=== PATIENT | female | born 1970 | race African-American/Black ===

== ENCOUNTER 2018-01-30 16:42 | Emergency (ER) | payer BC ==
[2018-01-30 16:56] VITALS: TEMP 97.7; BMI 40.1
[2018-01-30] MEDS ORDERED: SODIUM CHLORIDE 1,000 ML IV STA (17:21)
--- NOTE | 2018-01-30 17:51 | PDOC ---
History of Present Illness - General Chief Complaint: Blood Pressure Problem Stated Complaint: LOW BP Time Seen by Provider: 01/30/18 16:45 - History of Present Illness Initial Comments: 01/30/18 17:43 "The patient is a 47 year old female with significant PMH of GERD who presents to the emergency department complaining of intermittent episodes of lightheadedness and dizziness that started 2 weeks ago. She states that the episodes last a few minutes and resolve spontaneously. Pt denies any CP/SOB but endorses occasional palpitations. Denies F/C. Denies N/V/D/abdominal pain. Of note, the patient admits to losing 9lbs over the last week. She has been on a ketogenic diet since last week, limiting herself to less than 1200 calories a day. The patient had an episode of lightheadedness at her pulm appointment today and was found to be tachycardic to 110 with BP 100/80 and was advised to go to the ER. The patient denies abdominal pain, hematuria, and hematochezia/melena. Allergies: Percocet, oxycodone, and codeine. Medications: (nurse chart) Social History: Patient denies smoking and alcohol consumption. Surgical History: Cholecystectomy (2014), DNC (2005) Past History - Past Medical History Allergies/Adverse Reactions: Allergies Allergy/AdvReac Type Severity Reaction Status Date / Time codeine Allergy Intermediate Difficulty Verified 01/30/18 16:43 Breathing oxycodone HCl [From Percocet] Allergy Difficulty Verified 01/30/18 16:43 Breathing Home Medications: Ambulatory Orders Clonazepam [Klonopin] 2 mg PO HS 08/07/15 Duloxetine HCl [Cymbalta -] 120 mg PO HS 08/07/15 Pantoprazole Sodium [Protonix -] 40 mg PO DAILY 08/07/15 Albuterol Sulfate [Proair Hfa] 1 spray IH ASDIR PRN 01/30/18 Bupropion HCl [Wellbutrin -] 150 mg PO DAILY 01/30/18 Gabapentin 300 mg PO AM 01/30/18 Gabapentin 600 mg PO HS 01/30/18 Montelukast Sodium [Singulair] 10 mg PO DAILY 01/30/18 Pravastatin Sodium 20 mg PO HS 01/30/18 Prednisone [Deltasone] 20 mg PO ASDIR 01/30/18 Propranolol HCl 40 mg PO DAILY 01/30/18 Tiotropium [place] [Spiriva] 1 inh IH BID 01/30/18 Anemia: No Asthma: Yes (REACTIVE AIRWAY DSE) Cancer: No Cardiac Disorders: No CVA: No COPD: No CHF: No Dementia: No Diabetes: Yes (PT STATES SHE WAS TOLD HGA1C IS SLIGHTLY ELEVATED) GI Disorders: Yes (gerd) Disorders: No HTN: No Hypercholesterolemia: No Liver Disease: No Psychiatric Problems: Yes (ANXIETY, DEPRESSION) Seizures: No Thyroid Disease: No - Surgical History Abdominal Surgery: No Appendectomy: No Cardiac Surgery: No Cholecystectomy: Yes Lung Surgery: No Neurologic Surgery: No Orthopedic Surgery: No - Suicide/Smoking/Psychosocial Hx Smoking History: Never smoked Have you smoked in the past 12 months: No Hx Alcohol Use: No Drug/Substance Use Hx: No Substance Use Type: None Hx Substance Use Treatment: No Review of Systems - Review of Systems Comments:: 01/30/18 17:51 "GENERAL/CONSTITUTIONAL: No fever or chills. HEAD, EYES, EARS, NOSE AND THROAT: No change in vision. No ear pain or discharge. No sore throat. CARDIOVASCULAR: + lightheadedness, + palpitations, No chest pain or shortness of breath. RESPIRATORY: No cough, wheezing, or hemoptysis. GASTROINTESTINAL: No nausea, vomiting, diarrhea or constipation. GENITOURINARY: No dysuria, frequency, or change in urination. MUSCULOSKELETAL: No joint or muscle swelling or pain. No neck or back pain. SKIN: No rash NEUROLOGIC: No headache, vertigo, loss of consciousness, or change in strength/ sensation. ENDOCRINE: No increased thirst. No abnormal weight change. HEMATOLOGIC/LYMPHATIC: No anemia, easy bleeding, or history of blood clots. ALLERGIC/IMMUNOLOGIC: No hives or skin allergy. " *Physical Exam - Vital Signs Last Vital Signs Temp Pulse Resp BP Pulse Ox 97.7 F 110 H 20 113/67 98 01/30/18 16:42 01/30/18 16:42 01/30/18 16:42 01/30/18 16:42 01/30/18 16:42 - Physical Exam Comments: 01/30/18 17:51 "GENERAL: Awake, alert, and fully oriented, in no acute distress HEAD: No signs of trauma EYES: PERRLA, EOMI, sclera anicteric, conjunctiva clear ENT: Auricles normal inspection, hearing grossly normal, nares patent, oropharynx clear without exudates. Moist mucosa NECK: Nontender, no stepoffs, Normal ROM, supple, no lymphadenopathy, JVD, or masses LUNGS: Breath sounds equal, clear to auscultation bilaterally. No wheezes, and no crackles HEART: Regular rate and rhythm, normal S1 and S2, no murmurs, rubs or gallops ABDOMEN: Soft, nontender, normoactive bowel sounds. No guarding, no rebound. No masses EXTREMITIES: Normal range of motion, no edema. No clubbing or cyanosis. No cords, erythema, or tenderness NEUROLOGICAL: Cranial nerves II through XII intact. 5/5 strength and sensation in all extremities, Normal speech, normal gait, normal cerebellar function SKIN: Warm, Dry, normal turgor, no rashes or lesions noted. " Heart Score/ECG Review - History History: Slightly suspicious (NSR, no RENETTA/STDs, no TWIs, axis wnl, intervals wnl , rate 84) - Electrocardiogram EKG: Normal - Age Age: 45-65 - Risk Factors Risk Factors Heart Score: Yes Hx Obesity Based on the list above the patient has:: 1-2 risk factors - Troponin Troponin: </= normal limit (NSR, no RENETTA/STDs, no TWIs, axis wnl, intervals wnl, rate 84) - Score Heart Score - Total: 2 ED Treatment Course - LABORATORY CBC & Chemistry Diagram: 01/30/18 17:40 01/30/18 17:40 - RADIOLOGY Radiology Studies Ordered: Category Date Time Status CHEST PA & LAT [RAD] Stat Radiology 01/30/18 17:20 Ordered Medical Decision Making - Medical Decision Making 01/30/18 17:40 47 F with intermittent episodes of head heaviness and pre-syncope. Sent from clinic for low BP but normotensive in ED today. Pt without any focal complaints at this time. Pt with no infectious symptoms. NO chest pain/SOB to suggest ACS. Possible paroxysmal tachyarrhythmia, though EKG is completely normal. - Labs, trop - CXR, UA - IVF - Reassess 01/30/18 18:49 Labs wnl CXR clear Pt reassessed - now feels much better after IV fluids. Vitals now normal. Pt is well appearing, with normal vitals. Clinically stable for DC at this time. I discussed the physical exam findings, ancillary test results and final diagnoses with the patient. I answered all of the patient's questions. The patient was satisfied with the care received and felt comfortable with the discharge plan and treatment plan. The patient agrees to follow up with the primary care physician within 24-72 hours. *DC/Admit/Observation/Transfer Diagnosis at time of Disposition: Pre-syncope - Discharge Dispostion Disposition: HOME Condition at time of disposition: Stable - Referrals Referrals: Yuri Antonio MD [Primary Care Provider] - Aaron Allen MD [Staff Physician] - - Patient Instructions Printed Discharge Instructions: DI for Dizziness-Nonvertigo Additional Instructions: Please follow up with a ecological economist to have your palpitations and lightheadedness further evaluated. You may need a Holter monitor to evaluate your heart for abnormal rhythms. Ask your primary doctor for a referral or call the number provided to make an appointment. If you experience worsening palpitations, chest pain, shortness of breath, fainting episodes, or any other concerning symptoms, return to the ER immediately. Otherwise, follow up with your primary doctor within 1 week. - Post Discharge Activity - Attestations Physician Attestion: 01/30/18 18:56 I, Dr. Tom Boone MD, attest that this document has been prepared under my direction and personally reviewed by me in its entirety. I further attest, that it accurately reflects all work, treatment, procedures and medical decision -making performed by me.
[2018-01-30 17:57] LABS: BASO % 4.7 % (0-2.0); EOS % 1.4 % (0-4.5); HEMATOCRIT 42.7 % (32.4-45.2); HEMOGLOBIN 13.7 GM/dl (10.7-15.3); LYMPH % 39.4 % (8-40); MEAN CELL VOLUME 87.3 fl (80-96); MEAN PLT VOLUME 7.1 fl (7.5-11.1); MONO % 7.2 % (3.8-10.2); NEUT % 47.3 % (42.8-82.8); PLATELET COUNT 517 K/MM3 (134-434); RDW 13.8 % (11.6-15.6); WHITE BLOOD COUNT 8.5 K/mm3 (4.0-10.8)
[2018-01-30 18:12] LABS: ALBUMIN 3.4 g/dl (3.5-5.0); ALK PHOS 66 U/L (32-92); ANION GAP 10 (8-16); BILIRUBIN,TOTAL 0.5 mg/dl (0.2-1.0); BLOOD UREA NITROGEN 12 mg/dl (7-18); CALCIUM 9.4 mg/dl (8.4-10.2); CHLORIDE 97 mmol/L (98-107); CO2 26 mmol/L (22-28); GLUCOSE,RANDOM 105 mg/dl (74-106); POTASSIUM 3.9 mmol/L (3.5-5.1); SGOT/AST 20 U/L (10-42); SGPT/ALT 27 U/L (10-40); SODIUM 133 mmol/L (136-145); TOT PROT 7.9 g/dl (6.4-8.3)
[2018-01-30 18:17] LABS: URINE APPEARANCE Clear; URINE BILIRUBIN 1+ (NEGATIVE); URINE BLOOD Negative (NEGATIVE); URINE GLUCOSE (UA) Negative (NEGATIVE); URINE KETONE 3+ (NEGATIVE); URINE LEUK ESTERASE Negative (NEGATIVE); URINE NITRITE Negative (NEGATIVE); URINE PROTEIN Trace (NEGATIVE); URINE UROBILINOGEN 0.2 (0.2-1.0)
[2018-01-30 18:18] LABS: URINE COLOR YELLOW
[2018-01-30 18:20] LABS: HCG,QUALITATIVE URINE NEGATIVE
[2018-01-30 18:26] LABS: CREATININE < 0.8 mg/dl (0.6-1.3)
[2018-01-30] MEDS ORDERED: ACETAMINOPHEN 325 MG TABLET (FP) PO ONE (18:51)
[2018-01-30] MEDS ORDERED: ACETAMINOPHEN 325 MG TABLET (FP) ONE (18:56)
[2018-01-30 19:07] VITALS: BP 126/70; PULSE 84
--- NOTE | 2018-01-31 18:14 | EKG ---
Test Reason : Blood Pressure : / mmHG Vent. Rate : 092 BPM Atrial Rate : 092 BPM P-R Int : 148 ms QRS Dur : 072 ms QT Int : 364 ms P-R-T Axes : 065 011 040 degrees QTc Int : 450 ms NORMAL SINUS RHYTHM MINIMAL VOLTAGE CRITERIA FOR LVH, MAY BE NORMAL VARIANT NONSPECIFIC T WAVE ABNORMALITY ABNORMAL ECG NO PREVIOUS ECGS AVAILABLE Confirmed by MD JULI, MAYITO ([id number]) on 01/31/2018 6:13:24 PM Referred By: DR ROSARIO Confirmed By:MAYITO BUSTOS MD
== END 2018-01-30 19:40 | disposition home or self-care (01) ==
LOC: FER 16:42
PROC: 3E0337Z Introduction of Electrolytic and Water Balance Substance into Peripheral Vein, Percutaneous Approach (ICD-10-PCS; principal; 2018-01-30)
DX: R55 Syncope and collapse (principal); K21.9 Gastro-esophageal reflux disease without esophagitis; E11.9 Type 2 diabetes mellitus without complications; F41.8 Other specified anxiety disorders; J45.909 Unspecified asthma, uncomplicated; Z88.5 Allergy status to narcotic agent; Z88.6 Allergy status to analgesic agent; Z79.84 Long term (current) use of oral hypoglycemic drugs
CPT/HCPCS: 36415; 71046-TC-FY; 80053; 81003; 82550; 84443; 84484; 84703; 85025; 93005; 99284-25; J7030

== ENCOUNTER 2018-02-23 16:17 | Emergency (ER) | payer BC ==
--- NOTE | 2018-02-23 16:23 | PDOC ---
Rapid Medical Evaluation Time Seen by Provider: 02/23/18 16:18 Medical Evaluation: Allergies Allergy/AdvReac Type Severity Reaction Status Date / Time codeine Allergy Intermediate Difficulty Verified 01/30/18 16:43 Breathing oxycodone HCl [From Percocet] Allergy Difficulty Verified 01/30/18 16:43 Breathing 02/23/18 16:18 I have performed a brief in-person evaluation of this patient. The patient presents with a chief complaint of: pain to R side since Friday, feeling heart palpitations x 3 month, at pulm visit, had low BP, "Dr. Holland wanted me to come in", denies vomiting Pertinent physical exam findings: lungs ctab I have ordered the following: labs, ekg The patient will proceed to the ED for further evaluation. Discharge Disposition - Diagnosis Right sided abdominal pain - Referrals Referrals: Yuri Antonio MD [Primary Care Provider] - - Patient Instructions - Post Discharge Activity
[2018-02-23 16:30] VITALS: BP 128/88; PULSE 86; TEMP 98.4; BMI 41.2
[2018-02-23 17:04] LABS: BASO % 0.7 % (0-2.0); EOS % 4.4 % (0-4.5); HEMATOCRIT 36.5 % (32.4-45.2); HEMOGLOBIN 12.3 GM/dL (10.7-15.3); LYMPH % 39.3 % (8-40); MCH 29.3 pg (25.7-33.7); MCHC 33.8 g/dl (32.0-36.0); MEAN CELL VOLUME 86.9 fl (80-96); MONO % 11.2 % (3.8-10.2); NEUT % 44.4 % (42.8-82.8); PLATELET COUNT 441 K/MM3 (134-434); RDW 14.3 % (11.6-15.6); WHITE BLOOD COUNT 5.1 K/mm3 (4.0-10.0)
[2018-02-23 17:07] LABS: URINE APPEARANCE CLOUDY; URINE BILIRUBIN NEGATIVE (<2.0 mg/dL); URINE BLOOD 3+ (NEGATIVE); URINE COLOR AMBER; URINE GLUCOSE (UA) NEGATIVE (NEGATIVE); URINE KETONE NEGATIVE (NEGATIVE); URINE LEUK ESTERASE NEGATIVE (NEGATIVE); URINE NITRITE NEGATIVE (NEGATIVE); URINE UROBILINOGEN NEGATIVE mg/dL (0.2-1.0)
--- NOTE | 2018-02-23 17:12 | PDOC ---
History of Present Illness - General Chief Complaint: Pain Stated Complaint: RIGHT SIDE PAIN Time Seen by Provider: 02/23/18 16:18 - History of Present Illness Initial Comments: 02/23/18 17:40 The patient is a 47 year old female with a history of Asthma, DM, GERD s/p cholecystectomy 2014 who presents for evaluation of abdominal pain. The patient reports a 6 day history of RUQ intermittent sharp abdominal pain. The patient called her primary care provider Dr. Antonio who referred the patient to the ER for further evaluation. The patient otherwise denies fevers, chills, SOB , chest pain, nausea, vomiting, or changes with urination or bowel movements. Past History - Past Medical History Allergies/Adverse Reactions: Allergies Allergy/AdvReac Type Severity Reaction Status Date / Time codeine Allergy Intermediate Difficulty Verified 02/23/18 16:19 Breathing oxycodone HCl [From Percocet] Allergy Difficulty Verified 02/23/18 16:19 Breathing Home Medications: Ambulatory Orders Clonazepam [Klonopin] 2 mg PO HS 08/07/15 Duloxetine HCl [Cymbalta -] 120 mg PO HS 08/07/15 Pantoprazole Sodium [Protonix -] 40 mg PO DAILY 08/07/15 Albuterol Sulfate [Proair Hfa] 1 spray IH ASDIR PRN 01/30/18 Bupropion HCl [Wellbutrin -] 150 mg PO DAILY 01/30/18 Gabapentin 300 mg PO AM 01/30/18 Gabapentin 600 mg PO HS 01/30/18 Montelukast Sodium [Singulair] 10 mg PO DAILY 01/30/18 Pravastatin Sodium 20 mg PO HS 01/30/18 Prednisone [Deltasone] 20 mg PO ASDIR 01/30/18 Propranolol HCl 40 mg PO DAILY 01/30/18 Tiotropium [place] [Spiriva] 1 inh IH BID 01/30/18 Anemia: No Asthma: Yes (REACTIVE AIRWAY DSE) Cancer: No Cardiac Disorders: No CVA: No COPD: No CHF: No DVT: No Dementia: No Diabetes: Yes (PT STATES SHE WAS TOLD HGA1C IS SLIGHTLY ELEVATED) GI Disorders: Yes (gerd) Disorders: No HTN: No Hypercholesterolemia: No Liver Disease: No Psychiatric Problems: Yes (ANXIETY, DEPRESSION) Seizures: No Thyroid Disease: No Other medical history: fibromyalgia, tremors - Surgical History Abdominal Surgery: No Appendectomy: No Cardiac Surgery: No Cholecystectomy: Yes Lung Surgery: No Neurologic Surgery: No Orthopedic Surgery: No - Suicide/Smoking/Psychosocial Hx Smoking History: Never smoked Have you smoked in the past 12 months: No Information on smoking cessation initiated: No Hx Alcohol Use: No Drug/Substance Use Hx: No Substance Use Type: None Hx Substance Use Treatment: No Review of Systems - Review of Systems Comments:: 02/23/18 17:45 Constitutional: No fevers, chills, fatigue, malaise HEENT: No Rhinorrhea, nasal congestion, visual changes Cardiovascular: No chest pain, syncope, palpitations, lightheadedness Respiratory: No Cough, SOB, Hemoptysis, Gastrointestinal: Abdominal pain. No Nausea, Vomiting, Constipation, Diarrhea, Melena Genitourinary: No Dysuria, Frequency, Urgency, Hesitancy, Hematuria, Flank pain Musculoskeletal: No Myalgia, arthralgia Skin: No rashes, itching, bruising, pallor Neurologic: No Headache, Dizziness, Numbness, Weakness, or Tingling Psychiatric: No Hallucinations. No SI or HI *Physical Exam - Vital Signs Last Vital Signs Temp Pulse Resp BP Pulse Ox 98.4 F 86 18 128/88 100 02/23/18 16:20 02/23/18 16:20 02/23/18 16:20 02/23/18 16:20 02/23/18 16:20 - Physical Exam Comments: 02/23/18 17:47 General Appearance: Nourished. No Apparent Distress HEENT: EOMI, SUBHASH. No Pharyngeal Erythema, Tonsillar Exudate, Tonsillar Erythema Neck: No Cervical Lymphadenopathy Respiratory/Chest: Lungs Clear, Normal Breath Sounds. No Crackles, Rales, Rhonchi, Wheezing Cardiovascular: Regular Rhythm, Regular Rate. No Murmur, Gallops, Rubs Gastrointestinal/Abdominal: Normal Bowel Sounds, Soft. Tenderness to palpation in the RUQ and Epigastric regions. No Guarding, Rebound, Musculoskeletal: No CVA Tenderness Extremity: Normal Capillary Refill Integumentary: Normal Color, Dry, Warm Neurologic: Fully Oriented, Alert, Normal Mood/Affect, Normal Response, ED Treatment Course - LABORATORY CBC & Chemistry Diagram: 02/23/18 16:50 02/23/18 16:50 - ADDITIONAL ORDERS Additional order review: 02/23/18 16:50 RBC 4.20 MCV 86.9 MCHC 33.8 RDW 14.3 MPV 7.0 L Neutrophils % 44.4 D Lymphocytes % 39.3 D Monocytes % 11.2 H Eosinophils % 4.4 Basophils % 0.7 Medical Decision Making - Medical Decision Making 02/23/18 17:48 The patient is a 47 year old female with a history of Asthma, DM, GERD s/p cholecystectomy 2014 who presents for evaluation of abdominal pain. Differential includes but is not limited to: Cholydocholethiasis, Pancreatitis, Gastritis, Infectious, Metabolic derangement. Given the patient's history and physical exam, we will obtain a cbc, cmp, lipase, ua, and abdominal ct to evaluate for possible etiologies. We will continue to monitor and reassess in the meantime. 02/23/18 18:35 CBC, cmp, lipase, ua are unremarkable. Patient signed out to the night team pending CT abdomen/pelvis. *DC/Admit/Observation/Transfer Diagnosis at time of Disposition: Right sided abdominal pain - Discharge Dispostion Disposition: HOME Condition at time of disposition: Good - Referrals Referrals: Yuri Antonio MD [Primary Care Provider] - 1 week - Patient Instructions Printed Discharge Instructions: DI for Abdominal Pain-Adult Additional Instructions: You were seen her for abdominal pain. We did several tests including a CT scan of the abdomen, which did not show anything that would require immediate surgery. It however shows a fibroid. Please follow up with your primary care doctor as soon as possible Also follow up with your GI (pickling solution maker) as you may need endoscopy or colonoscopy You may continue to take medications to control the pain as needed If you think your symptoms are getting worse, or if you have chest pain, shortness of breath please go to the nearest emergency room - Post Discharge Activity
[2018-02-23 17:21] LABS: URINE PROTEIN 2+ (NEGATIVE)
[2018-02-23] MEDS ORDERED: SODIUM CHLORIDE 1,000 ML IV STA (17:27)
[2018-02-23 17:29] LABS: INR 1.34 (0.82-1.09); PROTHROMBIN TIME (PATIENT) 15.1 SEC (9.7-13.0)
[2018-02-23 17:30] LABS: EPI CELLS RARE /HPF (FEW); URINE MUCUS MANY
[2018-02-23 17:32] LABS: ALBUMIN 3.2 g/dl (3.4-5.0); ANION GAP 5 (8-16); BLOOD UREA NITROGEN 7 mg/dL (7-18); CALCIUM 8.8 mg/dL (8.5-10.1); CHLORIDE 105 mmol/L (98-107); CO2 28 mmol/L (21-32); GLUCOSE,RANDOM 90 mg/dL (74-106); POTASSIUM 3.9 mmol/L (3.5-5.1); SGOT/AST 15 U/L (15-37); SGPT/ALT 27 U/L (12-78); SODIUM 138 mmol/L (136-145)
[2018-02-23 17:34] LABS: ALK PHOS 87 U/L (45-117); BILIRUBIN,TOTAL 0.4 mg/dL (0.2-1.0); CREATININE 0.6 mg/dL (0.55-1.02); TOT PROT 7.7 g/dl (6.4-8.2)
[2018-02-23] MEDS ORDERED: ONDANSETRON 4 MG/2 ML VIAL IVPUSH ONE (18:54)
[2018-02-23] MEDS ORDERED: FAMOTIDINE 20 MG/50 ML IVPB 20 MG/50 ML MG IVPB ONE ×2 (18:54→19:03)
[2018-02-23] MEDS ORDERED: MAG HYDROX/AL HYDROX/SIMETH 30 ML UNIT-DOSE CUP PO ONE (18:54)
[2018-02-23] MEDS ORDERED: ONDANSETRON 4 MG/2 ML VIAL ONE (19:03)
[2018-02-23] MEDS ORDERED: MAG HYDROX/AL HYDROX/SIMETH 30 ML UNIT-DOSE CUP ONE (19:03)
--- NOTE | 2018-02-23 19:59 | PDOC ---
*Physical Exam - Vital Signs Last Vital Signs Temp Pulse Resp BP Pulse Ox 98.4 F 86 18 128/88 99 02/23/18 16:20 02/23/18 16:20 02/23/18 16:20 02/23/18 16:20 02/23/18 18:22 ED Treatment Course - LABORATORY CBC & Chemistry Diagram: 02/23/18 16:50 02/23/18 16:50 - ADDITIONAL ORDERS Additional order review: Laboratory Results 02/23/18 02/23/18 02/23/18 16:51 16:50 16:50 PT with INR INR Sodium 138 Potassium 3.9 Chloride 105 Carbon Dioxide 28 Anion Gap 5 L BUN 7 Creatinine 0.6 Creat Clearance w eGFR > 60 Random Glucose 90 Calcium 8.8 Total Bilirubin 0.4 AST 15 ALT 27 Alkaline Phosphatase 87 Total Protein 7.7 Albumin 3.2 L Lipase 103 Urine Color [place] Urine Appearance Cloudy Urine pH 6.0 Ur Specific [place] 1.020 Urine Protein 2+ H Urine Glucose (UA) Negative Urine Ketones Negative Urine Blood 3+ H Urine Nitrite Negative Urine Bilirubin Negative Urine Urobilinogen Negative Ur Leukocyte Esterase Negative Urine WBC (Auto) 153 Urine RBC (Auto) 2810 Ur Epithelial Cells Rare Urine Mucus Many 02/23/18 16:50 PT with INR 15.10 H INR 1.34 H Sodium Potassium Chloride Carbon Dioxide Anion Gap BUN Creatinine Creat Clearance w eGFR Random Glucose Calcium Total Bilirubin AST ALT Alkaline Phosphatase Total Protein Albumin Lipase Urine Color Urine Appearance Urine pH Ur Specific [place] Urine Protein Urine Glucose (UA) Urine Ketones Urine Blood Urine Nitrite Urine Bilirubin Urine Urobilinogen Ur Leukocyte Esterase Urine WBC (Auto) Urine RBC (Auto) Ur Epithelial Cells Urine Mucus 02/23/18 16:50 RBC 4.20 MCV 86.9 MCHC 33.8 RDW 14.3 MPV 7.0 L Neutrophils % 44.4 D Lymphocytes % 39.3 D Monocytes % 11.2 H Eosinophils % 4.4 Basophils % 0.7 - Medications Given in the ED: ED Medications Discontinued Medications Generic Name Dose Route Start Last Admin Trade Name Freq PRN Reason Stop Dose Admin Al Hydroxide/Mg Hydroxide 30 ml 02/23/18 18:54 02/23/18 19:08 Mylanta Oral Suspension - PO 02/23/18 18:55 30 ml ONCE ONE Administration Sodium Chloride 1,000 mls @ 1,000 mls/hr 02/23/18 17:27 02/23/18 17:52 Normal Saline - IV 02/23/18 18:26 1,000 mls/hr ASDIR STA Administration Famotidine/Sodium Chloride 20 mg in 50 mls @ 100 mls/hr 02/23/18 18:54 19:09 Pepcid 20 Mg Premixed Ivpb - IVPB 02/23/18 19:23 100 mls/hr ONCE ONE Administration Ondansetron HCl 4 mg 02/23/18 18:54 02/23/18 19:09 Zofran Injection IVPUSH 02/23/18 18:55 4 mg ONCE ONE Administration Medical Decision Making - Medical Decision Making 02/23/18 19:59 Patient signed out to me by Dr Wynne. Pending CT scan 02/23/18 22:00 CT does not show acute pathology. Shows calcified uterus indicative of fibroid *DC/Admit/Observation/Transfer Diagnosis at time of Disposition: Right sided abdominal pain - Discharge Dispostion Disposition: HOME Admit: No - Referrals Referrals: Yuri Atnonio MD [Primary Care Provider] - 1 week - Patient Instructions Printed Discharge Instructions: DI for Abdominal Pain-Adult Additional Instructions: You were seen her for abdominal pain. We did several tests including a CT scan of the abdomen, which did not show anything that would require immediate surgery. It however shows a fibroid. Please follow up with your primary care doctor as soon as possible You may continue to take over the counter medications to control the pain If you think your symptoms are getting worse, or if you have chest pain, shortness of breath please go to the nearest emergency room - Post Discharge Activity - Attestations Physician Attestion: 02/23/18 22:05 Tatiana Britton MD
--- NOTE | 2018-02-23 20:34 | PDOC ---
Attending Attestation - Resident Resident Name: Luis Wynne - ED Attending Attestation I have performed the following: I have examined & evaluated the patient, The case was reviewed & discussed with the resident, I agree w/resident's findings & plan, Exceptions are as noted - HPI HPI: 02/23/18 20:30 47 yo female with intermittent RUQ pain since Weds Denies fever,chills,vomiting.diarrhea,cp or sob PSH GB - Physicial Exam PE: 02/23/18 22:09 47 yo female p/w RLQ and RUQ pain since WED -head ncat neck supple lungs cta b/l cvs [id number] lungs cta b/l no cva tenderness abd is protuberant with mild tenderness to deep palpation in rlq and ruq, no rebound and no guarding musculoskeletal no hernia appreciated ext no e/c/c neuro axox3,ambulatory skin warm and dry - Medical Decision Making 02/23/18 22:12 ct scan abd/pel with contrast NO ACUTE ABD PROCESS SEEN, there was a 6 cm calcified uterine fibroid plan pt will follow up with Dr Chapis Alicia to get GI referral
== END 2018-02-23 22:43 | disposition home or self-care (01) ==
LOC: JER 16:17
PROC: 3E0337Z Introduction of Electrolytic and Water Balance Substance into Peripheral Vein, Percutaneous Approach (ICD-10-PCS; principal; 2018-02-23)
PROC: 3E033GC Introduction of Other Therapeutic Substance into Peripheral Vein, Percutaneous Approach (ICD-10-PCS; 2018-02-23)
PROC: 3E033GC Introduction of Other Therapeutic Substance into Peripheral Vein, Percutaneous Approach (ICD-10-PCS; 2018-02-23)
DX: R10.10 Upper abdominal pain, unspecified (principal); J45.909 Unspecified asthma, uncomplicated; K21.9 Gastro-esophageal reflux disease without esophagitis; E11.9 Type 2 diabetes mellitus without complications; F41.9 Anxiety disorder, unspecified; F32.9 Major depressive disorder, single episode, unspecified; M79.7 Fibromyalgia; Z88.6 Allergy status to analgesic agent
CPT/HCPCS: 36415; 74177-TC; 80053; 81003; 81015; 83690; 85025; 85610; 87086; 99285-25; J7030

== ENCOUNTER 2018-09-22 18:08 | Emergency (ER) | payer BC ==
--- NOTE | 2018-09-22 18:23 | PDOC ---
Rapid Medical Evaluation Chief Complaint: Lightheaded Time Seen by Provider: 09/22/18 18:20 Medical Evaluation: Allergies Allergy/AdvReac Type Severity Reaction Status Date / Time codeine Allergy Intermediate Difficulty Verified 02/23/18 16:19 Breathing oxycodone HCl [From Percocet] Allergy Difficulty Verified 02/23/18 16:19 Breathing 09/22/18 18:21 I have performed a brief in person evaluation. The patient presents with a CC of : "dizziness" HPI: Pt complains of "dizziness" x 2-3 weeks multiple times throughout the day. Pt denies CV hx. PE: Skin: Clear Lungs: Clear Heart: Tachy, no rubs or gallops Abd: no pain upon palpation MS: Moves all extremities without difficulty Neuro: Alert Psych: Appropriate affect I have ordered the following: Cv protocol The patient will proceed to the ED for further evaluation. Discharge Disposition - Diagnosis Dizziness - Referrals Referrals: Yuri Antonio MD [Primary Care Provider] - - Patient Instructions - Post Discharge Activity
[2018-09-22 18:28] VITALS: BMI 39.9
[2018-09-22 19:27] LABS: BASO % 1.1 % (0-2.0); EOS % 0.9 % (0-4.5); HEMATOCRIT 38.1 % (32.4-45.2); LYMPH % 21.9 % (8-40); MCH 29.3 pg (25.7-33.7); MCHC 34.1 g/dl (32.0-36.0); MEAN CELL VOLUME 86.1 fl (80-96); MONO % 6.1 % (3.8-10.2); PLATELET COUNT 543 K/MM3 (134-434); RBC 4.43 M/mm3 (3.60-5.2); RDW 14.4 % (11.6-15.6); WHITE BLOOD COUNT 8.1 K/mm3 (4.0-10.0)
[2018-09-22 19:38] LABS: INR 1.15 (0.83-1.09); PROTHROMBIN TIME (PATIENT) 13.6 SEC (9.7-13.0)
--- NOTE | 2018-09-22 19:48 | PDOC ---
History of Present Illness - General Chief Complaint: Syncope/Near Syncope Stated Complaint: Irregular Heart Beat Time Seen by Provider: 09/22/18 18:20 History Source: Patient Exam Limitations: No Limitations - History of Present Illness Initial Comments: 09/22/18 21:49 Patient is a 47-year-old female with past medical history of asthma, non-insulin -dependent diabetes, who presents to the emergency department today for head pain. Patient states that over the past 2 weeks she has been feeling pain and heaviness in her head intermittently. She states that the episodes are brief and usually resolve on their own. She states she occasionally feels her heart race when this happens. Denies fevers, chills, lightheadedness, dizziness, nausea, vomiting, chest pain, edema. Patient also reports some shortness of breath and taking prednisone the past week for her reactive airway disease. Past History - Travel Traveled outside of the country in the last 30 days: No Close contact w/someone who was outside of country & ill: No - Past Medical History Allergies/Adverse Reactions: Allergies Allergy/AdvReac Type Severity Reaction Status Date / Time codeine Allergy Intermediate Difficulty Verified 09/22/18 18:24 Breathing oxycodone HCl [From Percocet] Allergy Difficulty Verified 09/22/18 18:24 Breathing Home Medications: Ambulatory Orders Duloxetine HCl [Cymbalta -] 120 mg PO HS 08/07/15 Pantoprazole Sodium [Protonix -] 40 mg PO DAILY 08/07/15 Albuterol Sulfate [Proair Hfa] 1 spray IH ASDIR PRN 01/30/18 Bupropion HCl [Wellbutrin -] 150 mg PO DAILY 01/30/18 Gabapentin 200 mg PO AM 01/30/18 Montelukast Sodium [Singulair] 10 mg PO DAILY 01/30/18 Pravastatin Sodium 20 mg PO HS 01/30/18 Prednisone [Deltasone] 20 mg PO BID 01/30/18 Tiotropium Vance [Spiriva] 1 inh IH BID 01/30/18 Metformin HCl [Glucophage] 500 mg PO BID 09/22/18 Anemia: No Asthma: Yes (REACTIVE AIRWAY DSE) Cancer: No Cardiac Disorders: No CVA: No COPD: No CHF: No DVT: No Dementia: No Diabetes: Yes (PT STATES SHE WAS TOLD HGA1C IS SLIGHTLY ELEVATED) GI Disorders: Yes (gerd) Disorders: No HTN: No Hypercholesterolemia: No Liver Disease: No Psychiatric Problems: Yes (ANXIETY, DEPRESSION) Seizures: No Thyroid Disease: No - Surgical History Abdominal Surgery: No Appendectomy: No Cardiac Surgery: No Cholecystectomy: Yes Lung Surgery: No Neurologic Surgery: No Orthopedic Surgery: No - Suicide/Smoking/Psychosocial Hx Smoking History: Never smoked Have you smoked in the past 12 months: No Information on smoking cessation initiated: No Hx Alcohol Use: No Drug/Substance Use Hx: No Substance Use Type: None Hx Substance Use Treatment: No Review of Systems - Review of Systems Able to Perform ROS?: Yes Comments:: 09/22/18 21:31 CONSTITUTIONAL: Absent: fever, chills, diaphoresis, generalized weakness, malaise, loss of appetite HEENT: Absent: rhinorrhea, nasal congestion, throat pain, throat swelling, difficulty swallowing, mouth swelling, ear pain, eye pain, visual Changes CARDIOVASCULAR: Absent: chest pain, loss of consciousness, palpitations, irregular heart rate, peripheral edema RESPIRATORY: Absent: cough, shortness of breath, dyspnea with exertion, orthopnea, wheezing, stridor, hemoptysis GASTROINTESTINAL: Absent: abdominal pain, abdominal distension, nausea, vomiting, diarrhea, constipation, melena, hematochezia GENITOURINARY: Absent: dysuria, frequency, urgency, hesitancy, hematuria, flank pain, genital pain MUSCULOSKELETAL: Absent: myalgia, arthralgia, joint swelling SKIN: Absent: rash, itching, pallor HEMATOLOGIC/IMMUNOLOGIC: Absent: easy bleeding, easy bruising, lymphadenopathy, frequent infections ENDOCRINE: Absent: unexplained weight gain, unexplained weight loss, heat intolerance, cold intolerance NEUROLOGIC: Present: head pain, lightheadedness Absent: focal weakness or paresthesias, dizziness, unsteady gait, seizure, mental status changes, bladder or bowel incontinence PSYCHIATRIC: Absent: anxiety, depression, suicidal or homicidal ideation, hallucinations. 09/23/18 06:59 Is the patient limited Setswana proficient: No *Physical Exam - Vital Signs Last Vital Signs Temp Pulse Resp BP Pulse Ox 98.1 F 112 H 22 H 154/98 98 09/22/18 18:24 09/22/18 18:24 09/22/18 18:24 09/22/18 18:24 09/22/18 18:24 - Physical Exam Comments: 09/22/18 21:31 GENERAL: Well developed, well nourished. Awake and alert. No acute distress. HEENT: Normocephalic, atraumatic. PERRLA, EOMI. No conjunctival pallor. Sclera are non- icteric. Moist mucous membranes. Oropharynx is clear. NECK: Supple. Full ROM. No JVD. Carotid pulses 2+ and symmetric, without bruits. No thyromegaly. No lymphadenopathy. CARDIOVASCULAR: Regular rate and rhythm. No murmurs, rubs, or gallops. Distal pulses are 2+ and symmetric. PULMONARY: No evidence of respiratory distress. Lungs clear to auscultation bilaterally. No wheezing, rales or rhonchi. ABDOMINAL: Soft. Non-tender. Non-distended. No rebound or guarding. No organomegaly. Normoactive bowel sounds. MUSCULOSKELETAL Normal range of motion at all joints. No bony deformities or tenderness. No CVA tenderness. EXTREMITIES: No cyanosis. No clubbing. No edema. No calf tenderness. SKIN: Warm and dry. Normal capillary refill. No rashes. No jaundice. NEUROLOGICAL: Alert, awake, appropriate. Cranial nerves 2-12 intact. No deficits to light touch and temperature in face, upper extremities and lower extremities. No motor deficits in the in face, upper extremities and lower extremities. Normoreflexic in the upper and lower extremities. Normal speech. Toes are down- going bilaterally. Gait is normal without ataxia. PSYCHIATRIC: Cooperative. Good eye contact. Appropriate mood and affect. ED Treatment Course - LABORATORY CBC & Chemistry Diagram: 09/22/18 19:19 09/22/18 19:19 - ADDITIONAL ORDERS Additional order review: Laboratory Results 09/22/18 19:19 PT with INR 13.60 H INR 1.15 H 09/22/18 19:19 RBC 4.43 MCV 86.1 MCHC 34.1 RDW 14.4 MPV 7.0 L Neutrophils % 70.0 D Lymphocytes % 21.9 D Monocytes % 6.1 Eosinophils % 0.9 Basophils % 1.1 Medical Decision Making - Medical Decision Making 09/23/18 00:59 Patient is a 47-year-old female with past medical history of asthma/reactive airway disease who presents emergency Department with 2 weeks of intermittent light headedness, head pain. Patient is neurologically intact on exam. No active headache or dizziness at this time. Patient with diffuse expiratory wheezing on exam however patient denies shortness of breath. DuoNeb's given. Patient currently on prednisone as given by her primary care doctor. EKG obtained shows a rate of 112, normal intervals, normal axis, no acute ST-T wave changes. I suspect that her tachycardia is most likely caused by her wheezing. No recent travel or control use. Head CT shows no evidence of bleed, mass or ischemia. Patient feels better after one DuoNeb. Lab work is unremarkable, no electrolyte abnormalities, leukocytosis. 09/23/18 01:05 Troponin is negative, magnesium also normal. Unclear etiology as to patient feeling lightheaded for the past 2 weeks. However patient is currently stable at this time. Patient feels comfortable following up with her neurologist for her head pain and lightheadedness. We'll also give patient a cardiology referral for further workup. Strict return precautions given. Patient feels comfortable with plan. Discharge home I discussed the physical exam findings, ancillary test results and final diagnoses with the patient. I answered all of the patient's questions. The patient was satisfied with the care received and felt comfortable with the discharge plan and treatment plan. The Patient agrees to follow up with the primary care physician/specialist within 24-72 hours. Return precautions were given. *DC/Admit/Observation/Transfer Diagnosis at time of Disposition: Dizziness Head pain Qualifiers: Headache type: unspecified Headache chronicity pattern: unspecified pattern Intractability: not intractable Qualified Code(s): R51 - Headache - Discharge Dispostion Disposition: HOME Condition at time of disposition: Stable Decision to Admit order: No - Referrals Referrals: Yuri Antonio MD [Primary Care Provider] - Nick Hernandez MD [Staff Physician] - Andrez Berger DO [Staff Physician] - - Patient Instructions Printed Discharge Instructions: DI for Dizziness-Nonvertigo Additional Instructions: Your lab work, EKG and head CT were normal today. Please continue your breathing treatments and prednisone as previously prescribed. Please follow up with cardiology and neurology for further workup of your symptoms. Referrals have been provided. Return to the emergency department for worsening lightheadedness, dizziness, chest pain, loss of consciousness, or if you have any changes in your symptoms. - Post Discharge Activity Forms/Work/School Notes: Back to Work
[2018-09-22 19:56] LABS: ALBUMIN 3.7 g/dl (3.4-5.0); ALK PHOS 92 U/L (45-117); ANION GAP 9 MMOL/L (8-16); BILIRUBIN,TOTAL 0.2 mg/dL (0.2-1); BLOOD UREA NITROGEN 9 mg/dL (7-18); CALCIUM 9.1 mg/dL (8.5-10.1); CHLORIDE 100 mmol/L (98-107); CO2 28 mmol/L (21-32); CREATININE 0.7 mg/dL (0.55-1.3); GLUCOSE,RANDOM 87 mg/dL (74-106); SGOT/AST 20 U/L (15-37); SGPT/ALT 43 U/L (13-61); SODIUM 137 mmol/L (136-145); TOT PROT 8.2 g/dl (6.4-8.2)
--- NOTE | 2018-09-22 20:46 | PDOC ---
*Physical Exam - Vital Signs Last Vital Signs Temp Pulse Resp BP Pulse Ox 98.1 F 112 H 22 H 154/98 98 09/22/18 18:24 09/22/18 18:24 09/22/18 18:24 09/22/18 18:24 09/22/18 18:24 ED Treatment Course - LABORATORY CBC & Chemistry Diagram: 09/22/18 19:19 09/22/18 19:19 - ADDITIONAL ORDERS Additional order review: Laboratory Results 09/22/18 09/22/18 19:19 19:19 PT with INR 13.60 H INR 1.15 H Sodium 137 Potassium 4.0 Chloride 100 Carbon Dioxide 28 Anion Gap 9 BUN 9 Creatinine 0.7 Creat Clearance w eGFR > 60 Random Glucose 87 Calcium 9.1 Total Bilirubin 0.2 AST 20 ALT 43 Alkaline Phosphatase 92 Creatine Kinase 102 Troponin I < 0.02 Total Protein 8.2 Albumin 3.7 TSH 1.15 09/22/18 19:19 RBC 4.43 MCV 86.1 MCHC 34.1 RDW 14.4 MPV 7.0 L Neutrophils % 70.0 D Lymphocytes % 21.9 D Monocytes % 6.1 Eosinophils % 0.9 Basophils % 1.1 Medical Decision Making - Medical Decision Making 09/22/18 20:43 Pt seen by the Advanced Practice Provider under my direct supervision Pt interviewed and examined Ancillary studies reviewed I agree with plan as outlined by the Advanced Practice Provider SUDHEER Dsouza This is a 47-year-old female patient with reactive airway disease and migraines presents with multiple episodes last 2 weeks of paresthesias and intermittent lightheadedness. She reports that the symptoms come and go but is not vertiginous-like. Never endorses any fevers or chills or abdominal pain or chest pain shortness of breath. The patient did been herself from [facility] approximate 1 month ago for anxiety. However, the patient has not endorse taking benzodiazepines at this time. Is unclear what the etiology of this patient's symptoms are. The patient's EKG demonstrates no acute findings and no findings of Brugada, hypertrophic cardiomyopathy. Intervals are unremarkable. No finding of acute ischemia. If the workup here doesn't demonstrate metabolic, infectious, neurologic or cardiac etiology, the patient agrees to follow-up with a paper ruler and neurologist as an outpatient for further management. *DC/Admit/Observation/Transfer Diagnosis at time of Disposition: Dizziness - Referrals Referrals: Yuri Antonio MD [Primary Care Provider] - - Patient Instructions - Post Discharge Activity
[2018-09-22] MEDS ORDERED: ALBUTEROL SO4 2.5/IPRATROPIUM 0.5 INH SOL 3 ML VIAL.NEB. NEB ONE ×2 (21:02→21:40)
[2018-09-22 22:16] VITALS: BP 156/99; PULSE 111; TEMP 98.4
--- NOTE | 2018-09-23 15:40 | EKG ---
Test Reason : Blood Pressure : / mmHG Vent. Rate : 112 BPM Atrial Rate : 112 BPM P-R Int : 156 ms QRS Dur : 074 ms QT Int : 334 ms P-R-T Axes : 055 033 047 degrees QTc Int : 455 ms SINUS TACHYCARDIA OTHERWISE NORMAL ECG WHEN COMPARED WITH ECG OF 30-JAN-2018 17:24, NO SIGNIFICANT CHANGE WAS FOUND Confirmed by TISHA NINO MD ([id number]) on 09/23/2018 3:40:33 PM Referred By: Confirmed By:TISHA NINO MD
== END 2018-09-22 22:32 | disposition home or self-care (01) ==
LOC: JER 18:08
PROC: 3E0F7GC Introduction of Other Therapeutic Substance into Respiratory Tract, Via Natural or Artificial Opening (ICD-10-PCS; principal; 2018-09-22)
DX: R42 Dizziness and giddiness (principal); R51 Headache; E11.9 Type 2 diabetes mellitus without complications; Z79.84 Long term (current) use of oral hypoglycemic drugs; J45.909 Unspecified asthma, uncomplicated; K21.9 Gastro-esophageal reflux disease without esophagitis; F41.8 Other specified anxiety disorders; F32.9 Major depressive disorder, single episode, unspecified
CPT/HCPCS: 36415; 70450-TC; 71046-TC-FY; 80053; 82550; 84443; 84484; 84703; 85025; 85610; 93005; 93010; 99284-25